=== PATIENT | male | born 1950 | race Caucasian/White ===

== ENCOUNTER 2022-06-12 05:48 | Inpatient (IN) | payer OTHER ==
[2022-06-12] MEDS ORDERED: NOREPINEPHRINE 8 MG/250 ML-D5W 250 ML ONE (05:58)
[2022-06-12] MEDS ORDERED: Ketamine 50 MG/ML (10ML VIAL) ONE (06:06)
[2022-06-12] MEDS ORDERED: Vancomycin 1 GM/200 ML BAG ONE (06:06)
[2022-06-12 06:11] LABS: Actual Bicarbonate (HCO3a) 14.1 mEq/L (22-28); Analyzer IN Cardio ER; Base Excess (BEa) -15.3 mEq/L (-2.0 to +3.0); CO2 Tension 46.1 mmHg (35.0-45.0); Calcium, Ionized (arterial) 1.06 mmol/L (1.12-1.30); Hemoglobin (Hb) 14.5 g/dL (14.0-18.0); O2 Tension (PaO2), arterial 83.6 mmHg (> 70.0); Potassium - ABG Lab 6.24 mmol/L (3.70-5.30)
[2022-06-12 06:16] LABS: ALV-art Gradient 571.775 mmHg (0-20); Peep/CPAP 7.5 cmH2O; Puncture Site RFA
[2022-06-12] MEDS ORDERED: Sodium Bicarb 50 MEQ/50 ML Abboject 8.4% SYRINGE ONE ×2 (06:16→06:23)
[2022-06-12] MEDS ORDERED: Calcium Chloride 1 GM/10 ML Abboject SYRINGE ONE ×2 (06:16→06:23)
[2022-06-12] MEDS ORDERED: Fentanyl CADD 100 ML IV SCH (06:45)
[2022-06-12 07:08] LABS: #Eosinphils 0.1 thou/uL (0.0-0.7); #Lymphocytes 0.6 thou/uL (1.20-3.40); #Monocytes 1.2 thou/uL (0.11-0.59); %Basophils 0.2 % (0.0-1.0); %Eosinophils 0.4 % (0.0-10.0); %Lymphocytes 3.6 % (21.0-51.0); %Monocytes 6.8 % (0.0-10.0); %Neutrophils 89.1 % (42.0-75.0); Hemoglobin 13.6 g/dL (14.0-18.0); Mean Corpuscular HGB CONC 31.3 g/dL (32.0-36.0); Mean Corpuscular Hemoglobin 31.9 pg (27.0-31.0); Mean Platelet Volume 8.5 fL (7.4-10.4); Platelet Count 119 thou/uL (130-400); RBC Distribution Width 13.4 % (11.5-14.5); Red Blood Cell (RBC) Count 4.27 mill/uL (4.70-6.10)
[2022-06-12 07:12] LABS: Band 30 % (5-11); Lymphocytes 4 % (21-51); Monocytes 6 % (0-10); Neutrophil 60 % (42-75)
[2022-06-12 07:13] LABS: MDiff Complete? YES
[2022-06-12 07:46] LABS: Digoxin 0.52 ng/mL (0.8-2.0)
[2022-06-12 07:47] LABS: ALT (SGPT) 1292 U/L (8-55); AST (SGOT) 1532 U/L (5-34); Alkaline Phosphatase 67 U/L (40-110); Anion Gap 19 mmol/L (10-20); BUN (Urea Nitrogen) 31 mg/dL (8.4-25.7); Bilirubin, Total 2.6 mg/dL (0.2-1.2); Calc. Creatinine Clearance 0 mL/min (70-130); Calcium 7.3 mg/dL (7.8-10.44); Carbon Dioxide 13 mmol/L (23-31); Chloride 107 mmol/L (98-107); Estimated GFR 38; Globulin 2.8 g/dL (2.4-3.5); Potassium 6.4 mmol/L (3.5-5.1); Protein, Total 5.8 g/dL (5.8-8.1); Sodium 133 mmol/L (136-145)
[2022-06-12 07:57] LABS: Glucose 57 mg/dL (83-110)
[2022-06-12] MEDS ORDERED: Dextrose 50% Abboject 50 ML SYRINGE ONE (08:05)
[2022-06-12 08:15] LABS: CKMB 3.3 ng/mL (0-6.6)
[2022-06-12] MEDS ORDERED: Electrolyte Replacement Protocol 1 EACH IVPB SCH (08:41)
[2022-06-12] MEDS ORDERED: Ondansetron PF 4 MG/2 ML Vial IVP PRN (08:41)
[2022-06-12] MEDS ORDERED: DOBUTamine 500 mg/250 ml 250 ML IVPB SCH (08:45)
[2022-06-12 08:48] LABS: SARS-CoV-2 NAA Rapid Test DETECTED (NotDetected)
[2022-06-12 08:50] LABS: ALT (SGPT) 1950 U/L (8-55); AST (SGOT) 2405 U/L (5-34); Alkaline Phosphatase 74 U/L (40-110); Anion Gap 19 mmol/L (10-20); BUN (Urea Nitrogen) 33 mg/dL (8.4-25.7); Bilirubin, Total 3.1 mg/dL (0.2-1.2); Calc. Creatinine Clearance 0 mL/min (70-130); Calcium 8.1 mg/dL (7.8-10.44); Carbon Dioxide 17 mmol/L (23-31); Chloride 102 mmol/L (98-107); Estimated GFR 30; Globulin 2.6 g/dL (2.4-3.5); Glucose 228 mg/dL (83-110); Potassium 6.3 mmol/L (3.5-5.1); Protein, Total 5.6 g/dL (5.8-8.1); Sodium 132 mmol/L (136-145)
[2022-06-12] MEDS ORDERED: ABX IVPB PRN (08:50)
[2022-06-12] MEDS ORDERED: Amiodarone 450 MG in Dextrose 5% in Water 250 ML IVPB SCH (09:00)
[2022-06-12] MEDS ORDERED: Aspirin 81 mg Enteric Coated Tablet PER TUBE SCH (09:00)
[2022-06-12] MEDS ORDERED: Meropenem 1 GM in Sodium Chloride 0.9% 100 ML IVPB SCH ×2 (09:30→14:00)
[2022-06-12] MEDS ORDERED: Propofol BOLUS 1,000 MG/100 ML VIAL IV PRN (09:45)
[2022-06-12] MEDS ORDERED: Propofol 1,000 MG/100 ML VIAL IV PRN (09:45)
[2022-06-12] MEDS ORDERED: Morphine 4 MG/ML VIAL SLOW IVP PRN (09:45)
[2022-06-12] MEDS ORDERED: Fentanyl BOLUS 250 ML IVPB PRN (09:45)
[2022-06-12] MEDS ORDERED: DISCONTINUE PREVIOUS NARCOTIC PAIN MEDICATIONS AND BENZODIAZEPINES FS SCH (09:45)
[2022-06-12 09:55] LABS: Actual Bicarbonate (HCO3a) 30.8 mEq/L (22-28); Base Excess (BEa) 2.4 mEq/L (-2.0 to +3.0); Calcium, Ionized (arterial) 1.44 mmol/L (1.12-1.30); Carboxyhemoglobin (COHb) 0.3 gm% (0.0-3.0); Hemoglobin (Hb) 14.3 g/dL (14.0-18.0); O2 Tension (PaO2), arterial 103.2 mmHg (> 70.0); Potassium - ABG Lab 5.88 mmol/L (3.70-5.30); pH, Arterial 7.29 (7.35-7.45)
[2022-06-12 09:56] LABS: CO2 Tension 65.6 mmHg (35.0-45.0); Peep/CPAP 7.5 cmH2O; Puncture Site RFA
[2022-06-12] MEDS ORDERED: Sodium Bicarbonate 150 MEQ in Dextrose 5% in Water 1,000 ML IV SCH (10:00)
[2022-06-12] MEDS ORDERED: Sodium Bicarb 50 MEQ/50 ML VIAL IVP SCH (10:15)
[2022-06-12] MEDS ORDERED: Calcium Chloride 1 GM/10 ML Abboject SYRINGE IVP SCH (10:15)
[2022-06-12 10:29] LABS: Lactic Acid 3.4 mmol/L (0.5-2.2)
[2022-06-12 10:41] LABS: Anion Gap 18 mmol/L (10-20); BUN (Urea Nitrogen) 33 mg/dL (8.4-25.7); Calc. Creatinine Clearance 37 mL/min (70-130); Calcium 9.7 mg/dL (7.8-10.44); Carbon Dioxide 19 mmol/L (23-31); Chloride 104 mmol/L (98-107); Estimated GFR 30; Glucose 128 mg/dL (83-110); Potassium 6.4 mmol/L (3.5-5.1); Sodium 135 mmol/L (136-145)
[2022-06-12 10:43] LABS: Troponin I 1.295 ng/mL (< 0.028)
[2022-06-12] MEDS ORDERED: Ventilator Sedation Protocol 1 EACH FS SCH (10:45)
[2022-06-12] MEDS ORDERED: Norepinephrine 4 MG/4 ML VIAL ONE ×2 (11:01→11:03)
[2022-06-12 11:08] LABS: Magnesium 2.4 mg/dL (1.6-2.6)
[2022-06-12] MEDS: Aspirin Chewable 81 MG TAB PER TUBE SCH (12:16)
[2022-06-12] MEDS: Atorvastatin Calcium 40 MG TAB PER TUBE SCH (12:16)
[2022-06-12] MEDS: Hydrocortisone Sod Succ/PF 100 mg/2 ml Vial IVP SCH ×3 (12:21→21:01)
[2022-06-12 13:08] LABS: Anion Gap 19 mmol/L (10-20); BUN (Urea Nitrogen) 36 mg/dL (8.4-25.7); Calc. Creatinine Clearance 33 mL/min (70-130); Calcium 8.7 mg/dL (7.8-10.44); Carbon Dioxide 19 mmol/L (23-31); Chloride 102 mmol/L (98-107); Estimated GFR 27; Glucose 147 mg/dL (83-110); Potassium 6.5 mmol/L (3.5-5.1); Sodium 133 mmol/L (136-145)
[2022-06-12] MEDS: Insulin Regular 300 UNITS/3 ML VIAL SC PRN ×3 (13:16→22:15)
[2022-06-12] MEDS ORDERED: DOPamine 400 MG/D5W 250 ML 250 ML ONE (14:15)
[2022-06-12] MEDS ORDERED: DOPamine 400 MG/D5W 250 ML 250 ML IVPB SCH (15:15)
[2022-06-12] MEDS: NOREPINEPHRINE 8 MG/250 ML-D5W 250 ML IVPB SCH ×3 (15:16→22:01)
[2022-06-12] MEDS: Meropenem 1 GM in Sodium Chloride 0.9% 100 ML IVPB SCH (16:53)
[2022-06-12] MEDS: Famotidine/PF 20 mg/2ml Vial SLOW IVP SCH (21:00)
[2022-06-12] MEDS: Vancomycin 1 GM in Premix Bag 1 BAG IVPB SCH (21:01)
[2022-06-12 21:40] LABS: Bilirubin Negative (Negative); Blood, Urine 3+ (Negative); Clarity Extra Turbid (Clear); Glucose, Urine (Dipstick) 50 mg/dL (Negative); Ketone, Urine Negative (Negative); Leukocyte 25 Leu/uL (Negative); Nitrite Negative (Negative); Protein, Urine (Dipstick) 300 mg/dL (Neg-Trace); Specific Gravity, Urine 1.022 (1.002-1.036); Sperm/HPF 2+ HPF (None Seen); Squamous Epithelial 0-3 HPF (0-3); Urobilinogen Normal mg/dL (Less than 2); WBC/HPF 0-3 HPF (0-3)
[2022-06-12 21:41] LABS: Bacteria/HPF Rare-Few HPF (None Seen); Urine Culture Reflex Yes Yes
[2022-06-12 21:45] LABS: Amphetamine Not Detected (NotDetected); Barbiturates Screen Not Detected (NotDetected); Benzodiazepine Screen Not Detected (NotDetected); Cocaine Metabolite Screen Not Detected (NotDetected); Methadone Not Detected (NotDetected); Methamphetamine Not Detected (NotDetected); Opiate Screen Not Detected (NotDetected); Oxycodone Screen Not Detected (NotDetected); Phencyclidine (PCP) Not Detected (NotDetected); THC/Cannabinoid Screen Not Detected (NotDetected); Tricyclic Screen Not Detected (NotDetected)
[2022-06-12] MEDS: Fentanyl CADD 100 ML IV SCH (22:08)
[2022-06-13] MEDS: Midazolam HCl 2 mg/2 ml Vial SLOW IVP PRN ×6 (03:30→19:48)
[2022-06-13] MEDS: Hydrocortisone Sod Succ/PF 100 mg/2 ml Vial IVP SCH ×4 (05:09→21:53)
[2022-06-13] MEDS: NOREPINEPHRINE 8 MG/250 ML-D5W 250 ML IVPB SCH ×2 (05:10→23:05)
[2022-06-13] MEDS: Meropenem 1 GM in Sodium Chloride 0.9% 100 ML IVPB SCH (05:10)
[2022-06-13 05:36] LABS: Albumin 2.5 g/dL (3.4-4.8); Alkaline Phosphatase 79 U/L (40-110); Anion Gap 16 mmol/L (10-20); BUN (Urea Nitrogen) 47 mg/dL (8.4-25.7); Bilirubin, Total 2.2 mg/dL (0.2-1.2); Calc. Creatinine Clearance 24 mL/min (70-130); Carbon Dioxide 23 mmol/L (23-31); Chloride 99 mmol/L (98-107); Estimated GFR 17; Globulin 2.1 g/dL (2.4-3.5); Glucose 89 mg/dL (83-110); Protein, Total 4.6 g/dL (5.8-8.1); Sodium 133 mmol/L (136-145)
[2022-06-13 05:40] LABS: Band 24 % (5-11); Elliptocytes SLIGHT = 2-5 cells (100X) (0-1/hpf); Eosinophils 1 % (0-10); Hemoglobin 12.4 g/dL (14.0-18.0); Lymphocytes 2 % (21-51); MDiff Complete? YES; Macrocytosis MODERATE=16-30 cells (100X) (0-5/hpf); Mean Corpuscular HGB CONC 33.1 g/dL (32.0-36.0); Mean Corpuscular Hemoglobin 33.1 pg (27.0-31.0); Mean Platelet Volume 9.5 fL (7.4-10.4); Monocytes 3 % (0-10); Neutrophil 70 % (42-75); Ovalocytes SLIGHT = 2-5 cells (100X) (0-1/hpf); Platelet Count 84 thou/uL (130-400); Platelet Morphology Comment Appears Decreased; RBC Distribution Width 13.3 % (11.5-14.5); Red Blood Cell (RBC) Count 3.74 mill/uL (4.70-6.10); White Blood Cell (WBC) Count 20.8 thou/uL (4.8-10.8)
[2022-06-13 05:50] LABS: ALT (SGPT) 4704 U/L (8-55)
[2022-06-13 06:49] LABS: AST (SGOT) Greater than 3500 U/L (5-34)
[2022-06-13 07:45] LABS: Actual Bicarbonate (HCO3a) 20.4 mEq/L (22-28); Base Excess (BEa) -3.3 mEq/L (-2.0 to +3.0); CO2 Tension 32.5 mmHg (35.0-45.0); Calcium, Ionized (arterial) 1.07 mmol/L (1.12-1.30); Carboxyhemoglobin (COHb) 0.5 gm% (0.0-3.0); Hemoglobin (Hb) 13.5 g/dL (14.0-18.0); Potassium - ABG Lab 4.77 mmol/L (3.70-5.30); pH, Arterial 7.42 (7.35-7.45)
[2022-06-13 07:47] LABS: ALV-art Gradient 207.775 mmHg (0-20); Peep/CPAP 7.5 cmH2O; Puncture Site LRA
[2022-06-13] MEDS: Atorvastatin Calcium 40 MG TAB PER TUBE SCH (09:41)
[2022-06-13] MEDS: Aspirin Chewable 81 MG TAB PER TUBE SCH (09:41)
[2022-06-13] MEDS: Vancomycin 1 GM in Premix Bag 1 BAG IVPB SCH (09:54)
[2022-06-13] MEDS ORDERED: VANCOMYCIN FS SCH (10:00)
[2022-06-13] MEDS: Fentanyl CADD 100 ML IV SCH ×2 (10:39→22:31)
[2022-06-13] MEDS: Meropenem 500 MG in Sodium Chloride 0.9% 100 ML IVPB SCH (16:11)
[2022-06-13] MEDS: Famotidine/PF 20 mg/2ml Vial SLOW IVP SCH (20:46)
[2022-06-13 22:21] LABS: Vancomycin, Random 20.8 ug/mL (See Comment)
[2022-06-13] MEDS ORDERED: Fentanyl CADD 100 ML ONE (22:40)
[2022-06-14] MEDS: Midazolam HCl 2 mg/2 ml Vial SLOW IVP PRN ×3 (00:10→11:09)
[2022-06-14] MEDS: Hydrocortisone Sod Succ/PF 100 mg/2 ml Vial IVP SCH ×4 (04:30→21:18)
[2022-06-14] MEDS: Meropenem 500 MG in Sodium Chloride 0.9% 100 ML IVPB SCH ×2 (04:30→17:21)
[2022-06-14 06:10] LABS: AST (SGOT) 3496 U/L (5-34); Albumin 2.5 g/dL (3.4-4.8); Alkaline Phosphatase 112 U/L (40-110); Anion Gap 20 mmol/L (10-20); BUN (Urea Nitrogen) 71 mg/dL (8.4-25.7); Bilirubin, Total 3.4 mg/dL (0.2-1.2); Calc. Creatinine Clearance 18 mL/min (70-130); Calcium 7.9 mg/dL (7.8-10.44); Carbon Dioxide 19 mmol/L (23-31); Chloride 98 mmol/L (98-107); Estimated GFR 13; Globulin 2.2 g/dL (2.4-3.5); Glucose 115 mg/dL (83-110); Protein, Total 4.7 g/dL (5.8-8.1); Sodium 132 mmol/L (136-145)
[2022-06-14 06:14] LABS: Band 34 % (5-11); Hemoglobin 13.7 g/dL (14.0-18.0); Hypochromia SLIGHT = 6-15 cells (100X) (0-5/hpf); MDiff Complete? YES; Mean Corpuscular HGB CONC 31.9 g/dL (32.0-36.0); Mean Platelet Volume 10.7 fL (7.4-10.4); Monocytes 6 % (0-10); Neutrophil 60 % (42-75); Platelet Count 97 thou/uL (130-400); Platelet Morphology Comment Appears Decreased; RBC Distribution Width 13.6 % (11.5-14.5); Red Blood Cell (RBC) Count 4.27 mill/uL (4.70-6.10); White Blood Cell (WBC) Count 19.6 thou/uL (4.8-10.8)
[2022-06-14 06:23] LABS: ALT (SGPT) 4552 U/L (8-55)
[2022-06-14 07:04] LABS: Vancomycin, Random 18.9 ug/mL (See Comment)
[2022-06-14] MEDS ORDERED: Vancomycin HCl 500 MG in Sodium Chloride 0.9% 100 ML IVPB SCH (08:00)
[2022-06-14] MEDS: Aspirin Chewable 81 MG TAB PER TUBE SCH (08:08)
[2022-06-14] MEDS ORDERED: Fentanyl CADD 100 ML ONE ×2 (11:30→23:38)
[2022-06-14] MEDS: Fentanyl CADD 100 ML IV SCH ×2 (11:32→23:41)
[2022-06-14] MEDS: NOREPINEPHRINE 8 MG/250 ML-D5W 250 ML IVPB SCH (14:53)
[2022-06-14] MEDS: Famotidine/PF 20 mg/2ml Vial SLOW IVP SCH (21:18)
[2022-06-15] MEDS: Meropenem 500 MG in Sodium Chloride 0.9% 100 ML IVPB SCH ×2 (04:15→17:04)
[2022-06-15] MEDS: Hydrocortisone Sod Succ/PF 100 mg/2 ml Vial IVP SCH ×4 (04:15→22:04)
[2022-06-15 05:15] LABS: ALT (SGPT) 3679 U/L (8-55); AST (SGOT) 1696 U/L (5-34); Albumin 2.5 g/dL (3.4-4.8); Alkaline Phosphatase 119 U/L (40-110); Anion Gap 19 mmol/L (10-20); BUN (Urea Nitrogen) 89 mg/dL (8.4-25.7); Bilirubin, Total 4.7 mg/dL (0.2-1.2); Calc. Creatinine Clearance 17 mL/min (70-130); Calcium 7.9 mg/dL (7.8-10.44); Carbon Dioxide 20 mmol/L (23-31); Chloride 99 mmol/L (98-107); Estimated GFR 11; Globulin 2.3 g/dL (2.4-3.5); Glucose 131 mg/dL (83-110); Potassium 4.8 mmol/L (3.5-5.1); Protein, Total 4.8 g/dL (5.8-8.1); Sodium 133 mmol/L (136-145)
[2022-06-15 05:43] LABS: Hemoglobin 14.5 g/dL (14.0-18.0); MDiff Complete? YES; Mean Corpuscular HGB CONC 32.8 g/dL (32.0-36.0); Mean Corpuscular Hemoglobin 32.8 pg (27.0-31.0); Mean Platelet Volume 10.6 fL (7.4-10.4); Platelet Count 97 thou/uL (130-400); RBC Distribution Width 13.8 % (11.5-14.5); Red Blood Cell (RBC) Count 4.41 mill/uL (4.70-6.10); White Blood Cell (WBC) Count 21.8 thou/uL (4.8-10.8)
[2022-06-15 05:44] LABS: Band 16 % (5-11); Lymphocytes 1 % (21-51); Macrocytosis MODERATE=16-30 cells (100X) (0-5/hpf); Monocytes 3 % (0-10); Neutrophil 79 % (42-75); Nucleated RBC 1 % (0); Ovalocytes SLIGHT = 2-5 cells (100X) (0-1/hpf); Platelet Morphology Comment Appears Decreased; Reactive Lymphocytes 1 % (0-10); Tear Drops SLIGHT = 2-5 cells (100X) (0-1/hpf)
[2022-06-15] MEDS: Midazolam HCl 2 mg/2 ml Vial SLOW IVP PRN (06:25)
[2022-06-15] MEDS ORDERED: Metoclopramide HCl 10 MG/2 ML VIAL IVP PRN (08:14)
[2022-06-15] MEDS: Heparin 5,000 UNITS/ML VIAL SC SCH ×2 (09:24→22:04)
[2022-06-15] MEDS: Aspirin Chewable 81 MG TAB PER TUBE SCH (09:26)
[2022-06-15] MEDS: NOREPINEPHRINE 8 MG/250 ML-D5W 250 ML IVPB SCH (11:23)
[2022-06-15] MEDS: Famotidine/PF 20 mg/2ml Vial SLOW IVP SCH (22:04)
[2022-06-16] MEDS: Meropenem 500 MG in Sodium Chloride 0.9% 100 ML IVPB SCH ×2 (04:10→16:46)
[2022-06-16] MEDS: Hydrocortisone Sod Succ/PF 100 mg/2 ml Vial IVP SCH ×2 (04:10→16:34)
[2022-06-16 05:09] LABS: Anion Gap 16 mmol/L (10-20); BUN (Urea Nitrogen) 115 mg/dL (8.4-25.7); Carbon Dioxide 24 mmol/L (23-31); Chloride 101 mmol/L (98-107); Potassium 5.4 mmol/L (3.5-5.1); Sodium 136 mmol/L (136-145)
[2022-06-16 05:10] LABS: ALT (SGPT) 2620 U/L (8-55); AST (SGOT) 760 U/L (5-34); Albumin 2.6 g/dL (3.4-4.8); Alkaline Phosphatase 120 U/L (40-110); Band 27 % (5-11); Bilirubin, Total 4.7 mg/dL (0.2-1.2); Calc. Creatinine Clearance 16 mL/min (70-130); Calcium 8.1 mg/dL (7.8-10.44); Estimated GFR 10; Globulin 2.4 g/dL (2.4-3.5); Glucose 126 mg/dL (83-110); Hemoglobin 13.4 g/dL (14.0-18.0); Hypochromia SLIGHT = 6-15 cells (100X) (0-5/hpf); Lymphocytes 2 % (21-51); MDiff Complete? YES; Mean Corpuscular HGB CONC 32.4 g/dL (32.0-36.0); Mean Corpuscular Hemoglobin 33.1 pg (27.0-31.0); Mean Platelet Volume 10.6 fL (7.4-10.4); Monocytes 5 % (0-10); Neutrophil 66 % (42-75); Platelet Count 95 thou/uL (130-400); Platelet Morphology Comment Appears Adequate; RBC Distribution Width 13.7 % (11.5-14.5); Red Blood Cell (RBC) Count 4.05 mill/uL (4.70-6.10); White Blood Cell (WBC) Count 19.9 thou/uL (4.8-10.8)
[2022-06-16] MEDS ORDERED: Vancomycin HCl 500 MG in Sodium Chloride 0.9% 100 ML IVPB SCH (08:45)
[2022-06-16] MEDS: Clopidogrel Bisulfate 75 MG TAB PO SCH (08:59)
[2022-06-16] MEDS: Aspirin Chewable 81 MG TAB PER TUBE SCH (08:59)
[2022-06-16] MEDS: Heparin 5,000 UNITS/ML VIAL SC SCH ×2 (09:00→21:19)
[2022-06-16] MEDS: Nitroglycerin 2% Ointment 1 INCH/1 GM Packet TOP SCH (09:00)
[2022-06-16] MEDS: Nystatin 500,000 UNITS/5 ML UDCUP PO SCH ×2 (16:34→21:21)
[2022-06-16 16:57] LABS: Anion Gap 19 mmol/L (10-20); BUN (Urea Nitrogen) 119 mg/dL (8.4-25.7); Calc. Creatinine Clearance 17 mL/min (70-130); Calcium 8.3 mg/dL (7.8-10.44); Carbon Dioxide 20 mmol/L (23-31); Chloride 105 mmol/L (98-107); Estimated GFR 11; Glucose 120 mg/dL (83-110); Sodium 139 mmol/L (136-145)
[2022-06-16] MEDS: Famotidine/PF 20 mg/2ml Vial SLOW IVP SCH (21:28)
[2022-06-17] MEDS: Hydrocortisone Sod Succ/PF 100 mg/2 ml Vial IVP SCH ×2 (03:49→18:04)
[2022-06-17] MEDS: Meropenem 500 MG in Sodium Chloride 0.9% 100 ML IVPB SCH ×2 (05:09→18:08)
[2022-06-17 07:08] LABS: Mean Corpuscular HGB CONC 32.3 g/dL (32.0-36.0); Mean Corpuscular Hemoglobin 32.6 pg (27.0-31.0); Mean Platelet Volume 9.4 fL (7.4-10.4); Platelet Count 117 thou/uL (130-400); Red Blood Cell (RBC) Count 3.99 mill/uL (4.70-6.10); White Blood Cell (WBC) Count 16.5 thou/uL (4.8-10.8)
[2022-06-17 07:20] LABS: ALT (SGPT) 1752 U/L (8-55); AST (SGOT) 367 U/L (5-34); Albumin 2.7 g/dL (3.4-4.8); Alkaline Phosphatase 131 U/L (40-110); Anion Gap 18 mmol/L (10-20); BUN (Urea Nitrogen) 116 mg/dL (8.4-25.7); Bilirubin, Total 5.3 mg/dL (0.2-1.2); Calc. Creatinine Clearance 18 mL/min (70-130); Calcium 8.4 mg/dL (7.8-10.44); Carbon Dioxide 20 mmol/L (23-31); Chloride 108 mmol/L (98-107); Estimated GFR 12; Globulin 2.6 g/dL (2.4-3.5); Glucose 130 mg/dL (83-110); Potassium 4.2 mmol/L (3.5-5.1); Protein, Total 5.3 g/dL (5.8-8.1); Sodium 142 mmol/L (136-145)
[2022-06-17 08:47] LABS: Band 11 % (5-11); Lymphocytes 1 % (21-51); MDiff Complete? YES; Monocytes 3 % (0-10); Neutrophil 85 % (42-75); Platelet Morphology Comment Appears Decreased; RBC Morphology Normal
[2022-06-17] MEDS: Nystatin 500,000 UNITS/5 ML UDCUP PO SCH ×4 (09:48→20:53)
[2022-06-17] MEDS: Nitroglycerin 2% Ointment 1 INCH/1 GM Packet TOP SCH (09:48)
[2022-06-17] MEDS: Heparin 5,000 UNITS/ML VIAL SC SCH ×2 (09:48→20:56)
[2022-06-17] MEDS: Aspirin Chewable 81 MG TAB PER TUBE SCH (09:48)
[2022-06-17] MEDS: Famotidine/PF 20 mg/2ml Vial SLOW IVP SCH (20:56)
[2022-06-18] MEDS: Hydrocortisone Sod Succ/PF 100 mg/2 ml Vial IVP SCH (04:07)
[2022-06-18] MEDS: Meropenem 500 MG in Sodium Chloride 0.9% 100 ML IVPB SCH (04:27)
[2022-06-18 05:35] LABS: #Lymphocytes 0.2 thou/uL (1.20-3.40); #Monocytes 0.8 thou/uL (0.11-0.59); #Neutrophils 11.1 thou/uL (1.40-6.50); %Eosinophils 0.1 % (0.0-10.0); %Lymphocytes 1.4 % (21.0-51.0); %Monocytes 6.4 % (0.0-10.0); Hemoglobin 12.3 g/dL (14.0-18.0); Mean Corpuscular HGB CONC 34.1 g/dL (32.0-36.0); Mean Corpuscular Hemoglobin 34.6 pg (27.0-31.0); Mean Platelet Volume 9.5 fL (7.4-10.4); Platelet Count 111 thou/uL (130-400); RBC Distribution Width 14.2 % (11.5-14.5); Red Blood Cell (RBC) Count 3.54 mill/uL (4.70-6.10)
[2022-06-18 05:46] LABS: Vancomycin, Random 9.5 ug/mL (See Comment)
[2022-06-18 05:48] LABS: ALT (SGPT) 1094 U/L (8-55); AST (SGOT) 188 U/L (5-34); Albumin 2.4 g/dL (3.4-4.8); Alkaline Phosphatase 126 U/L (40-110); Anion Gap 16 mmol/L (10-20); BUN (Urea Nitrogen) 105 mg/dL (8.4-25.7); Bilirubin, Total 4.1 mg/dL (0.2-1.2); Calc. Creatinine Clearance 21 mL/min (70-130); Calcium 7.9 mg/dL (7.8-10.44); Carbon Dioxide 22 mmol/L (23-31); Chloride 111 mmol/L (98-107); Estimated GFR 16; Globulin 2.3 g/dL (2.4-3.5); Glucose 120 mg/dL (83-110); Potassium 3.9 mmol/L (3.5-5.1); Protein, Total 4.7 g/dL (5.8-8.1); Sodium 145 mmol/L (136-145)
[2022-06-18] MEDS ORDERED: Vancomycin HCl 750 MG in Sodium Chloride 0.9% 250 ML 250 ML IVPB SCH (07:15)
[2022-06-18] MEDS: Furosemide 40 MG TAB PO SCH (08:36)
[2022-06-18] MEDS: Clopidogrel Bisulfate 75 MG TAB PO SCH (08:37)
[2022-06-18] MEDS: Heparin 5,000 UNITS/ML VIAL SC SCH ×2 (08:37→21:38)
[2022-06-18] MEDS: Aspirin Chewable 81 MG TAB PER TUBE SCH (08:37)
[2022-06-18] MEDS: Nitroglycerin 2% Ointment 1 INCH/1 GM Packet TOP SCH (08:37)
[2022-06-18] MEDS: Nystatin 500,000 UNITS/5 ML UDCUP PO SCH ×4 (08:38→21:39)
[2022-06-18] MEDS ORDERED: Metoclopramide HCl 10 MG/2 ML VIAL IVP PRN (13:05)
[2022-06-18] MEDS: Insulin Regular 300 UNITS/3 ML VIAL SC PRN (19:15)
[2022-06-18] MEDS: Famotidine/PF 20 mg/2ml Vial SLOW IVP SCH (21:35)
[2022-06-19 05:19] LABS: Vancomycin, Random 12.7 ug/mL (See Comment)
[2022-06-19 05:24] LABS: ALT (SGPT) 773 U/L (8-55); AST (SGOT) 120 U/L (5-34); Albumin 2.4 g/dL (3.4-4.8); Alkaline Phosphatase 144 U/L (40-110); Anion Gap 14 mmol/L (10-20); BUN (Urea Nitrogen) 90 mg/dL (8.4-25.7); Bilirubin, Total 4.1 mg/dL (0.2-1.2); Calc. Creatinine Clearance 13 mL/min (70-130); Calcium 7.8 mg/dL (7.8-10.44); Carbon Dioxide 25 mmol/L (23-31); Chloride 108 mmol/L (98-107); Estimated GFR 22; Globulin 2.4 g/dL (2.4-3.5); Glucose 95 mg/dL (83-110); Potassium 3.6 mmol/L (3.5-5.1); Protein, Total 4.8 g/dL (5.8-8.1); Sodium 143 mmol/L (136-145)
[2022-06-19 05:51] LABS: Band 2 % (5-11); Hemoglobin 12.8 g/dL (14.0-18.0); Lymphocytes 1 % (21-51); MDiff Complete? YES; Macrocytosis SLIGHT = 6-15 cells (100X) (0-5/hpf); Mean Corpuscular HGB CONC 33.4 g/dL (32.0-36.0); Mean Corpuscular Volume 98.9 fL (78.0-98.0); Mean Platelet Volume 9.2 fL (7.4-10.4); Monocytes 5 % (0-10); Neutrophil 92 % (42-75); Ovalocytes SLIGHT = 2-5 cells (100X) (0-1/hpf); Platelet Count 132 thou/uL (130-400); Platelet Morphology Comment Appears Adequate; RBC Distribution Width 14.1 % (11.5-14.5); Red Blood Cell (RBC) Count 3.88 mill/uL (4.70-6.10)
[2022-06-19] MEDS: Heparin 5,000 UNITS/ML VIAL SC SCH ×2 (08:34→21:19)
[2022-06-19] MEDS: Nitroglycerin 2% Ointment 1 INCH/1 GM Packet TOP SCH (08:34)
[2022-06-19] MEDS: Clopidogrel Bisulfate 75 MG TAB PO SCH (08:34)
[2022-06-19] MEDS: Furosemide 40 MG TAB PO SCH (08:34)
[2022-06-19] MEDS: Aspirin Chewable 81 MG TAB PER TUBE SCH (08:34)
[2022-06-19] MEDS: Nystatin 500,000 UNITS/5 ML UDCUP PO SCH ×4 (08:34→21:18)
[2022-06-19 15:02] VITALS: BMI 11.7
[2022-06-19] MEDS: Famotidine/PF 20 mg/2ml Vial SLOW IVP SCH (21:18)
[2022-06-20] MEDS: Acetaminophen 500 MG TAB PO SCH ×2 (05:43→05:46)
[2022-06-20 05:51] LABS: Band 15 % (5-11); Eosinophils 1 % (0-10); Hemoglobin 13.4 g/dL (14.0-18.0); Lymphocytes 13 % (21-51); MDiff Complete? YES; Mean Corpuscular HGB CONC 35.1 g/dL (32.0-36.0); Mean Corpuscular Hemoglobin 34.8 pg (27.0-31.0); Mean Platelet Volume 9.5 fL (7.4-10.4); Neutrophil 71 % (42-75); Platelet Count 118 thou/uL (130-400); Platelet Morphology Comment Appears Decreased; RBC Morphology Normal; Red Blood Cell (RBC) Count 3.85 mill/uL (4.70-6.10); White Blood Cell (WBC) Count 8.8 thou/uL (4.8-10.8)
[2022-06-20 05:55] LABS: ALT (SGPT) 527 U/L (8-55); AST (SGOT) 96 U/L (5-34); Albumin 2.2 g/dL (3.4-4.8); Alkaline Phosphatase 124 U/L (40-110); Anion Gap 15 mmol/L (10-20); BUN (Urea Nitrogen) 72 mg/dL (8.4-25.7); Bilirubin, Total 4.8 mg/dL (0.2-1.2); Calc. Creatinine Clearance 18 mL/min (70-130); Calcium 7.6 mg/dL (7.8-10.44); Carbon Dioxide 23 mmol/L (23-31); Chloride 106 mmol/L (98-107); Estimated GFR 32; Globulin 2.9 g/dL (2.4-3.5); Glucose 87 mg/dL (83-110); Potassium 4.1 mmol/L (3.5-5.1); Protein, Total 5.1 g/dL (5.8-8.1); Sodium 140 mmol/L (136-145)
[2022-06-20] MEDS: Clopidogrel Bisulfate 75 MG TAB PO SCH (08:07)
[2022-06-20] MEDS: Aspirin Chewable 81 MG TAB PER TUBE SCH (08:07)
[2022-06-20] MEDS: Furosemide 40 MG TAB PO SCH (08:08)
[2022-06-20] MEDS: Nystatin 500,000 UNITS/5 ML UDCUP PO SCH (08:08)
[2022-06-20] MEDS: Nitroglycerin 2% Ointment 1 INCH/1 GM Packet TOP SCH (08:08)
[2022-06-20] MEDS: Heparin 5,000 UNITS/ML VIAL SC SCH (08:08)
[2022-06-20 12:11] VITALS: BP 99/60; TEMP 96.4
== END 2022-06-20 12:58 | disposition hospice, inpatient (51) | DRG 871 ==
LOC: ERS 05:48 → EEVIPCON 08:25 → CCU 08:25 → MSONC 06-16 18:13
PROVIDERS: ADMIT Internal Medicine; ATTEND Internal Medicine
PROC: 5A1945Z Respiratory Ventilation, 24-96 Consecutive Hours (ICD-10-PCS; principal; 2022-06-12)
PROC: 0D9670Z Drainage of Stomach with Drainage Device, Via Natural or Artificial Opening (ICD-10-PCS; 2022-06-12)
PROC: 3E0G76Z Introduction of Nutritional Substance into Upper GI, Via Natural or Artificial Opening (ICD-10-PCS; 2022-06-12)
PROC: 3E043XZ Introduction of Vasopressor into Central Vein, Percutaneous Approach (ICD-10-PCS; 2022-06-12)
PROC: 02HV33Z Insertion of Infusion Device into Superior Vena Cava, Percutaneous Approach (ICD-10-PCS; 2022-06-12)
PROC: 3E04329 Introduction of Other Anti-infective into Central Vein, Percutaneous Approach (ICD-10-PCS; 2022-06-12)
PROC: 8E0ZXY6 Isolation (ICD-10-PCS; 2022-06-12)
PROC: 5A09457 Assistance with Respiratory Ventilation, 24-96 Consecutive Hours, Continuous Positive Airway Pressure (ICD-10-PCS; 2022-06-15)
DX: A41.9 Sepsis, unspecified organism (principal); U07.1 COVID-19; J96.01 Acute respiratory failure with hypoxia; R65.21 Severe sepsis with septic shock; I46.9 Cardiac arrest, cause unspecified; K72.00 Acute and subacute hepatic failure without coma; R57.0 Cardiogenic shock; I50.23 Acute on chronic systolic (congestive) heart failure; G93.41 Metabolic encephalopathy; N17.0 Acute kidney failure with tubular necrosis; I42.8 Other cardiomyopathies; I47.2 Ventricular tachycardia; E87.1 Hypo-osmolality and hyponatremia; I13.2 Hypertensive heart and chronic kidney disease with heart failure and with stage 5 chronic kidney disease, or end stage renal disease; N18.5 Chronic kidney disease, stage 5; E87.0 Hyperosmolality and hypernatremia; Z66 Do not resuscitate; I25.10 Atherosclerotic heart disease of native coronary artery without angina pectoris; B18.2 Chronic viral hepatitis C; J45.909 Unspecified asthma, uncomplicated; E87.5 Hyperkalemia; E78.5 Hyperlipidemia, unspecified; E88.09 Other disorders of plasma-protein metabolism, not elsewhere classified; D69.6 Thrombocytopenia, unspecified; D63.1 Anemia in chronic kidney disease; Z88.5 Allergy status to narcotic agent; Z79.899 Other long term (current) drug therapy; Z79.82 Long term (current) use of aspirin; Z79.51 Long term (current) use of inhaled steroids; Z79.02 Long term (current) use of antithrombotics/antiplatelets; Z78.1 Physical restraint status; Z95.0 Presence of cardiac pacemaker; Z95.5 Presence of coronary angioplasty implant and graft; Z98.890 Other specified postprocedural states
CPT/HCPCS: 36415; 36416; 36600; 71045; 80053; 80162; 80202; 80306; 81001; 82533; 82553; 82805; 83605; 83735; 83880; 84145; 84443; 85025; 87081; 87086; 93005; 93010; 93306; 94002; 94003; 94660; 96365; 96366; 96368; 96374; 96375; 99292; J0282; J1265; J1644; J1720; J1815; J2185; J2250; J2405; J3010; J3370; J3490; J7050; J7070; J7999; S0028; U0002